=== PATIENT | male | born 1990 | race Caucasian/White ===

== ENCOUNTER 2022-05-29 10:33 | Emergency (ER) | payer MEDICAID, SELFPAY ==
[2022-05-29] VITALS (18 sets, daily range): BP systolic 116–137; BP diastolic 75–96; PULSE 58–87; RESP 18–20; TEMP 36.4; O2SAT 91–97; BMI 21.6
--- NOTE | 2022-05-29 10:57 | CRLHL7_ITS ---
For Patients: As a result of the Century Cures Act, medical imaging exams and procedure reports are released immediately into your electronic medical record. You may view this report before your referring provider. If you have questions, please contact your health care provider. CHEST 1 VIEW AP INDICATION: Cough. IMPRESSION: Normal heart size and vascular pattern. Lungs are clear of focal opacities. No pneumothorax or pleural abnormality. Dictated by Rinku Hong MD @ 05/29/2022 11:45:09 AM (Electronically Signed)
--- NOTE | 2022-05-29 10:59 | ED.GENADULT ---
HPI - General Adult General Time Seen by Provider: 10:59 Date Seen: 05/29/22 Chief complaint: Chest Pain Stated complaint: Heart hurts Time Seen by Provider: 05/29/22 10:35 Source: patient Mode of arrival: ambulatory Limitations: no limitations History of Present Illness HPI narrative: Patient is a 32 year white male who has been through alcohol treatment in the past, reports regular drinking, has been drinking fairly heavily recently. He has had congestion since he was diagnosed with COVID about 12 days ago. He apparently did a home test. He has had some congestion and cough. He denies any abdominal pain denies specifically chest pain but does state he is coughing when he coughs his chest is tight. He has no shortness of breath, his O2 sat is 97% on room air, has not had any marked fevers or chills. He has not any purulent sputum. He has no leg swelling or edema, no bleeding or clotting problems. He reports he is not allergic to medication, past medical history single for alcoholism he denies any home meds Related Data Home Medications Medication Instructions Recorded Confirmed No Known Home Medications 05/29/22 05/29/22 Allergies Allergy/AdvReac Type Severity Reaction Status Date / Time No Known Drug Allergies Allergy Verified 05/29/22 10:45 Review of Systems Status of ROS: Reports: 6 or more systems reviewed and unremarkable except as noted in History and below [facility] Social History Smoking Status: Current every day smoker What tobacco products do you use: cigarettes Smoking packs per day: 0.75 Smoking cigarettes per day: 15.0 Do you use any of these nicotine containing products: None Second hand tobacco smoke exposure: No How often do you have a drink containing alcohol: 4 or more times a week How many standard drinks containing alcohol do you have on a typical day: 7 to 9 How often do you have six or more drinks on one occasion: Daily or almost daily AUDIT-C Alcohol total score: 11 Non-prescribed substance use: denies use Exam Narrative: Exam Narrative: Objective: Patient's vital signs unremarkable he is alert or x3, has an eczematous rash several spots patchy spots on his face and upper body in arms He is alert orient x3 smells of alcohol, alert oriented and noncyanotic. Denies pain or injury. HEENT is unremarkable neck is supple chest is clear bilaterally no rales or wheezing heart rhythm without murmur Abdomen benign soft nontender no masses Extremities are no edema good peripheral perfusion, neurologic is nonfocal Const: Vital Signs, click to edit/add: Vital Signs - 24 hr 05/29/22 10:37 05/29/22 11:10 05/29/22 10:50 Temperature 97.5 F L Pulse Rate 73 Pulse Rate [Pulse Oximeter] 74 Respiratory Rate 20 Blood Pressure Blood Pressure [Ri ght Upper Arm] 137/96 H Pulse Oximetry 97 92 92 Oxygen Delivery Me thod Room Air 05/29/22 11:00 05/29/22 11:02 05/29/22 11:15 Temperature Pulse Rate 75 71 76 Pulse Rate [Pulse Oximeter] Respiratory Rate Blood Pressure 116/75 Blood Pressure [Ri ght Upper Arm] Pulse Oximetry 92 92 94 Oxygen Delivery Me thod 05/29/22 11:30 05/29/22 11:31 05/29/22 11:45 Temperature Pulse Rate 79 85 69 Pulse Rate [Pulse Oximeter] Respiratory Rate Blood Pressure 127/94 H Blood Pressure [Ri ght Upper Arm] Pulse Oximetry 93 91 95 Oxygen Delivery Me thod 05/29/22 12:06 05/29/22 12:07 05/29/22 12:15 Temperature Pulse Rate 58 L 58 L 64 Pulse Rate [Pulse Oximeter] Respiratory Rate Blood Pressure 128/79 Blood Pressure [Ri ght Upper Arm] Pulse Oximetry 95 93 93 Oxygen Delivery Me thod 05/29/22 12:30 05/29/22 12:32 05/29/22 12:45 Temperature Pulse Rate 63 62 67 Pulse Rate [Pulse Oximeter] Respiratory Rate Blood Pressure 124/79 Blood Pressure [Ri ght Upper Arm] Pulse Oximetry 94 95 94 Oxygen Delivery Me thod 05/29/22 13:00 05/29/22 13:02 05/29/22 13:15 Temperature Pulse Rate 70 80 87 Pulse Rate [Pulse Oximeter] Respiratory Rate 18 Blood Pressure 126/90 H Blood Pressure [Ri ght Upper Arm] Pulse Oximetry 94 95 96 Oxygen Delivery Me thod Course Vital Signs Vital signs: Initial Vital Signs Temperature 97.5 F L 05/29/22 10:37 Temperature Source Temporal Artery Scan 05/29/22 10:37 Pulse Rate 74 05/29/22 10:37 Respiratory Rate 20 05/29/22 10:37 Blood Pressure 137/96 H 05/29/22 10:37 Blood Pressure Mean 109 H 05/29/22 10:37 Blood Pressure Position Semi-Fowlers 05/29/22 10:37 Pulse Oximetry 97 05/29/22 10:37 Oxygen Delivery Method Room Air 05/29/22 10:37 Vital Signs Temperature 97.5 F L 05/29/22 10:37 Pulse Rate 74 05/29/22 10:37 Respiratory Rate 20 05/29/22 10:37 Blood Pressure 137/96 H 05/29/22 10:37 Pulse Oximetry 97 05/29/22 10:37 Oxygen Delivery Method Room Air 05/29/22 10:37 Temperature 97.5 F L 05/29/22 10:37 Pulse Rate 87 05/29/22 13:15 Respiratory Rate 18 05/29/22 13:02 Blood Pressure 126/90 H 05/29/22 13:02 Pulse Oximetry 96 05/29/22 13:15 Oxygen Delivery Method Room Air 05/29/22 10:37 Medical Decision Making [facility] Narrative Medical decision making narrative: [age] year white male alcoholic with alcohol intoxication, recent diagnosis of COVID. By a home test. I think at this point be reasonable to make sure does not have any pneumonia or other respiratory compound compromise, his O2 sat looks excellent however he is afebrile. Will rehydrate with a banana bag of fluid, will give him an aspirin 324 chewable check a point of care troponin an EKG which demonstrates normal sinus rhythm with sinus arrhythmia no acute ST T wave changes. Will check electrolytes and lab studies. The patient will get some IV fluid as mention and disposition pending findings above. He does have a ride home. Will check his alcohol level as well. Addendum: The patient's chest x-ray looks unremarkable to my read, his EKG shows normal sinus rhythm with sinus arrhythmia. The patient has an elevated alcohol level of 0.29. The patient also has a negative troponin, negative CRP, normal white count hemoglobin, normal ER profile, negative COVID influenza the RSV test, and the patient does have a positive D-dimer at 0.60. Given that the COVID is negative I think would be appropriate to check because of his cough for PE and will do a chest CT scan with IV contrast. Addendum: The patient's CT scan of the chest looks pretty unremarkable by my read, await Radiology overreading. If this is read as negative, I suspect a lot of his congestion is due to the COVID-19 that he tested positive for 12 days ago. He is not test positive further. His alcohol level is high does have a ride home. He would be advised to follow-up with his primary care doctor to discuss treatment options for his alcoholism, and return to ED as needed for problems or concerns. The patient did complain of a slightly upset stomach and was given a GI cocktail prior to discharge. He had no findings of peritonitis on his abdomen or tenderness of significance. Addendum: The patient is deciding now that he would like to go to detox. Transfer sheets will be completed on the patient for transfer. He has been medically cleared for detox. Lab Data Labs: Lab Results 05/29/22 05/29/22 Range/Units 11:10 13:30 WBC 6.65 (4.50-11.00) K/uL RBC 4.63 (4.30-5.90) m/uL Hgb 15.3 (13.5-17.5) gm/dL Hct 44.9 (37.0-53.0) % MCV 97 (80-100) fL MCH 33 (26-34) pg MCHC 34 (32-36) gm/dL RDW Coeff of [place] 13.3 (11.5-15.5) % Plt Count 361 (140-440) K/uL Neut % (Auto) 62.2 (42.0-72.0) % Lymph % (Auto) 26.8 (20-44) % [place] % (Auto) 8.6 (0.0-11.0) % Eos % (Auto) 1.2 (0.0-7.0) % Baso % (Auto) 1.2 (0.0-3.0) % Neut # (Auto) 4.14 (1.7-7.0) K/uL Lymph # (Auto) 1.78 (0.90-2.90) K/uL [place] # (Auto) 0.60 (0.00-0.90) K/UL Eos # (Auto) 0.08 (0.00-0.50) K/uL Baso # (Auto) 0.08 (0.00-0.30) K/uL D-Dimer Quant (PE/DVT) 0.60 H (0.00-0.50) ug/ml Sodium 140 (135-149) mmol/L Potassium 4.1 (3.6-5.1) mmol/L Chloride 101 (96-114) mmol/L Carbon Dioxide 25 (20-32) mmol/L BUN 8 (5-24) mg/dL Creatinine 0.5 (0.5-1.5) mg/dL Estimated Creat Clear 210.92 Estimated GFR 139 ml/min Glucose 109 (60-115) mg/dL Calcium 8.9 (8.4-10.6) mg/dL C-Reactive Protein < 0.5 L (0.5-1.0) mg/dL NT-Pro-B Natriuret Pep < 20 pg/mL Urine Opiates Screen Negative (Negative) Ur Oxycodone Screen Negative (Negative) Urine Methadone Screen Negative (Negative) Ur Propoxyphene Screen Negative (Negative) Ur Barbiturates Screen Negative (Negative) U Tricyclic Antidepress Negative (Negative) Ur Phencyclidine Scrn Negative (Negative) Ur Amphetamines Screen Negative (Negative) U Methamphetamines Scrn Negative (Negative) U Benzodiazepines Scrn Negative (Negative) Urine Cocaine Screen Negative (Negative) U Marijuana (THC) Screen Negative (Negative) Ur Drug Screen Comment See Note Ethyl Alcohol 0.29 H (0.01-0.03) % SARS-CoV-2 (PCR) Negative SARS-CoV-2 (Negative) Influenza Type A (PCR) Negative PCR FLU A (Negative) Influenza Type B (PCR) Negative PCR FLU B (Negative) RSV (PCR) Negative PCR RSV (Negative) POC Troponin I 0.00 L (0.01-0.04) ng/ml Discharge Plan Discharge Clinical Impression: COVID-19, Alcoholism, Cough Patient Disposition: Home w/ Parent or Adult Condition: Stable Additional Instructions: Light activity, stop drinking, call back to social service for consultation if have any interest in pursuing sobriety, Tylenol Advil as needed. Return to ED as needed problems or concerns, otherwise follow up with regular doctor in 2-3 days. Activity Level: Light activity Discharge Diet: Regular Prescriptions: No Action No Known Home Medications Stand Alone Forms: [facility] Info Instructions
[2022-05-29] MEDS: ASPIRIN 81 MG TAB.CHEW 324 MG PO (11:16)
[2022-05-29 11:25] LABS: Basophils Absolute Auto 0.08 K/uL (0.00-0.30); Basophils Percent Auto 1.2 % (0.0-3.0); Eosinophils Absolute Auto 0.08 K/uL (0.00-0.50); Eosinophils Percent Auto 1.2 % (0.0-7.0); Hematocrit 44.9 % (37.0-53.0); Hemoglobin* 15.3 gm/dL (13.5-17.5); Lymphocytes Absolute Auto 1.78 K/uL (0.90-2.90); Lymphocytes Percent Auto 26.8 % (20-44); Mean Corpuscular HGB Conc 34 gm/dL (32-36); Mean Corpuscular Hemoglobin 33 pg (26-34); Mean Corpuscular Volume 97 fL (80-100); Monocytes Percent Auto 8.6 % (0.0-11.0); Neutrophils Absolute Auto 4.14 K/uL (1.7-7.0); Neutrophils Percent Auto 62.2 % (42.0-72.0); Platelet Count* 361 K/uL (140-440); RDW Coefficient of Variation % 13.3 % (11.5-15.5); Red Blood Count 4.63 m/uL (4.30-5.90); White Blood Count* 6.65 K/uL (4.50-11.00)
[2022-05-29 11:26] LABS: Slide Review Reflex No
--- NOTE | 2022-05-29 11:33 | ED.NURSE ---
Pt states he has a hx of ETOH withdrawal seizure about 12 hours from his last drink. Last drink at 0800 this morning. CIWA of 14. Dr Villasenor updated.
[2022-05-29 11:39] LABS: Chloride* 101 mmol/L (96-114); Potassium* 4.1 mmol/L (3.6-5.1); Sodium* 140 mmol/L (135-149)
[2022-05-29 11:41] LABS: Creatinine* 0.5 mg/dL (0.5-1.5); Est. Creatinine Clearance* 210.92; Estimated Glomerular Filt Rate 139 ml/min
[2022-05-29 11:42] LABS: Blood Urea Nitrogen* 8 mg/dL (5-24); Calcium* 8.9 mg/dL (8.4-10.6); Carbon Dioxide* 25 mmol/L (20-32); Glucose* 109 mg/dL (60-115)
[2022-05-29 11:43] LABS: Ethanol* 0.29 % (0.01-0.03)
--- NOTE | 2022-05-29 11:45 | ED.NURSE ---
No new orders at this timer based on CIWA.
[2022-05-29 11:59] LABS: C Reactive Protein* < 0.5 mg/dL (0.5-1.0); NT Pro B Type NatriureticPept* < 20 pg/mL
[2022-05-29 12:01] LABS: PCR FLU A Negative PCR FLU A (Negative); PCR FLU B Negative PCR FLU B (Negative); PCR RSV Negative PCR RSV (Negative)
[2022-05-29 12:02] LABS: SARS PCR* Negative SARS-CoV-2 (Negative)
--- NOTE | 2022-05-29 12:03 | CRLHL7_ITS ---
For Patients: As a result of the Cures Act, medical imaging exams and procedure reports are released immediately into your electronic medical record. You may view this report before your referring provider. If you have questions, please contact your health care provider. INDICATION: Positive D-dimer. COVID infection TECHNIQUE : CT scan of the chest. CTA PE protocol. IV contrast. 95 cc Isovue IV FINDINGS: Pulmonary arteries:No pulmonary artery filling defects. Heart/mediastinum:No adenopathy. Normal heart size. No pericardial fluid. Aorta: Unremarkable Lungs and pleura:No consolidation or effusion. Abdomen/skeletal:Low-dense fatty infiltration of the liver. No significant skeletal abnormality. IMPRESSION: 1. No signs for acute pulmonary embolus. 2. Low-dense fatty infiltration of the liver. Please note that all CT scans at this facility use dose modulation, iterative reconstruction, and/or weight-based dosing when appropriate to reduce radiation dose to as low as reasonably achievable. Dictated by Rinku Hong MD @ 05/29/2022 12:51:32 PM (Electronically Signed)
[2022-05-29] MEDS: GI COCKTAIL (VISC LIDO/ANTACID) 30 ML PO (13:12)
--- NOTE | 2022-05-29 13:30 | ED.NURSE ---
After removing IV and giving pt d/c papers, pt stated he would like to go to detox after all. Would like assistance in getting there. Information given to Marva leung.
[2022-05-29 14:00] LABS: Amphetamine Screen Urine Negative (Negative); Barbiturate Screen Urine Negative (Negative); Benzodiazepines Screen Urine Negative (Negative); Cannabinoid Screen Urine Negative (Negative); Cocaine Screen Urine Negative (Negative); Methadone Screen Urine Negative (Negative); Methamphetamines Screen Urine Negative (Negative); Opiate Screen Urine Negative (Negative); Oxycodone Screen Urine Negative (Negative); Phencyclidine Screen Urine Negative (Negative); Tricyclic Antidepressant Urine Negative (Negative)
--- NOTE | 2022-05-29 15:11 | ED.NURSE ---
Acceptance to [facility]. Pt is aware that he will need to stay 24-72 hours and cannot leave until he is medically cleared. Pt states he has a ride home from detox. EMS called for transport.
[2022-05-29] MEDS: ONDANSETRON ODT 4 MG TAB PO (15:43)
--- NOTE | 2022-05-29 15:52 | ED.NURSE ---
PT transferred to [facility].
== END 2022-05-29 15:53 | disposition home or self-care (01) ==
LOC: ED 11:49
PROVIDERS: Emergency Provider Family Medicine
DX: U07.1 COVID-19 (principal); F10.20 Alcohol dependence, uncomplicated
CPT/HCPCS: 36415; 71045; 71260; 80048; 80306; 82077; 83880; 84484; 85025; 85379; 86140; 87631; 93005; 94761; 99284; 99285; A9270; J3411; J7030; Q9967

== ENCOUNTER 2022-05-29 15:35 | Outpatient (CLI) | payer MEDICAID, SELFPAY | END 2022-05-29 15:36 | disposition home or self-care (01) | LOC: AMB 06-02 09:16 | PROVIDERS: Visit Provider Family Medicine | DX: F10.239 Alcohol dependence with withdrawal, unspecified (principal) | CPT/HCPCS: A0425; A0428 ==

== ENCOUNTER 2022-06-19 07:05 | Inpatient (IN) | payer MEDICAID, SELFPAY ==
[2022-06-19] VITALS (20 sets, daily range): BP systolic 121–150; BP diastolic 76–92; PULSE 53–106; RESP 16–20; TEMP 36.6–36.8; O2SAT 94–98; BMI 20.3
--- NOTE | 2022-06-19 07:39 | CRLHL7_ITS ---
For Patients: As a result of the Century Cures Act, medical imaging exams and procedure reports are released immediately into your electronic medical record. You may view this report before your referring provider. If you have questions, please contact your health care provider. INDICATION: Vomiting and abdominal pain. TECHNIQUE: CT abdomen and pelvis acquired with 74 cc Isovue 370 IV contrast. COMPARISON: 05/29/2022. FINDINGS: Lower chest: Unremarkable. Liver: Fatty infiltration. Otherwise unremarkable. Gallbladder and bile ducts: Unremarkable. No stones or inflammation. No biliary dilatation. Pancreas: Unremarkable. No mass or inflammation. Spleen: Unremarkable. Normal in size. No masses. Adrenal glands: Unremarkable. No nodules. Kidneys: Unremarkable. No suspicious masses, stones, or hydronephrosis. GI tract: Unremarkable. Normal in caliber. No sign of mass or inflammation. Normal appendix. Vasculature: Abdominal aorta is normal in caliber. Mesenteric arteries are patent. Lymph nodes: No lymphadenopathy. Peritoneum/Abdominal Wall: Unremarkable. No sign of mass or infiltration. No free air or significant free fluid. Pelvis: Unremarkable. Bones: Unremarkable for age. IMPRESSION: Unremarkable CT of the abdomen and pelvis. No findings to explain vomiting or abdomen pain. Specifically the GI tract is normal.. Please note that all CT scans at this facility use dose modulation, iterative reconstruction, and/or weight-based dosing when appropriate to reduce radiation dose to as low as reasonably achievable. Dictated by Melquiades Zambrano MD @ 06/19/2022 8:27:48 AM (Electronically Signed)
--- NOTE | 2022-06-19 07:42 | ED_ITS ---
HPI - Nausea/Vomiting/Diarrhea General Chief complaint: Nausea/Vomiting <Bebeto Canales MD - Last Filed: 06/19/22 07:51> Stated complaint: Vomiting blood last 24hr <Bebeto Canales MD - Last Filed: 06/19/22 07:51> Time Seen by Provider: 06/19/22 07:34 <Bebeto Canales MD - Last Filed: 06/19/22 07:51> History of Present Illness HPI Narrative: Patient is a 32-year-old gentleman who has a history of alcohol abuse who is been vomiting for approximately 20 hours. The patient's vomiting has over the last several hours started produce coffee-ground emesis. He has diffuse abdominal pain which localizes to the epigastrium. He has had no chest pain danisha rtness a breath orthopnea or PND. He has had similar problems in the past and is supposed to be taking omeprazole which he has discontinued. Patient is not certain how much he drink 2 days ago but states that he does drink on a nearly every day basis. He has had no blood in his stool no diarrhea no seizure activity although he does have a history of seizures x2 number of years ago. Patient is not hit his head and has no other complaints. <Bebeto Canales MD - Last Filed: 06/19/22 07:51> Related Data Home medications: Home Medications Medication Instructions Recorded Confirmed No Known Home Medications 05/29/22 05/29/22 <Bebeto Canales MD - Last Filed: 06/19/22 07:51> Allergies/Adverse reactions: Allergies Allergy/AdvReac Type Severity Reaction Status Date / Time No Known Drug Allergies Allergy Verified 06/19/22 08:07 <Bebeto Canales MD - Last Filed: 06/19/22 07:51> Review of Systems Status of ROS: Reports: 10 or more systems reviewed and unremarkable except as noted in History and below <Bebeto Canales MD - Last Filed: 06/19/22 07:51> [facility] Medical History: Medical History Alcohol abuse ?F10.10 - Alcohol abuse, uncomplicated (ICD-10) Seizures ?R56.9 - Unspecified convulsions (ICD-10) <Bebeto Canales MD - Last Filed: 06/19/22 07:51> Surgical History: Surgical History History of ankle surgery ?Z98.890 - Other specified postprocedural states (ICD-10) <Bebeto Canales MD - Last Filed: 06/19/22 07:51> Social History: Social History Smoking Status: Current every day smoker What tobacco products do you use: cigarettes Smoking packs per day: 0.75 Smoking cigarettes per day: 15.0 Do you use any of these nicotine containing products: None Second hand tobacco smoke exposure: No How often do you have a drink containing alcohol: 4 or more times a week How many standard drinks containing alcohol do you have on a typical day: 7 to 9 How often do you have six or more drinks on one occasion: Daily or almost daily AUDIT-C Alcohol total score: 11 Non-prescribed substance use: denies use service: No <Bebeto Canales MD - Last Filed: 06/19/22 07:51> Exam Narrative: Exam Narrative: EXAM GENERAL: Patient appears mildly uncomfortable and pale. EYES: No scleral icterus. LYMPH: No supraclavicular or cervical lymphadenopathy. SKIN: Visible skin seen during exam normal or with benign process only. EXT: No dependent lower extremity pedal edema. HEART: Regular rate and rhythm with no murmurs, rubs, or gallops. LUNGS: Clear to auscultation bilaterally with no crackles or wheezes. ABD: Somewhat rigid with hypoactive bowel sounds no rebound masses or guarding. PSYCH: Good eye contact, speech is not pressured. <Bebeto Canales MD - Last Filed: 06/19/22 07:51> Const: Vital Signs, click to edit/add: Vital Signs - 24 hr 06/19/22 07:21 Temperature 97.9 F Pulse Rate [Pulse Oximeter] 69 Respiratory Rate 20 Blood Pressure [Ri ght Upper Arm] 144/88 H Pulse Oximetry 96 Oxygen Delivery Me thod Room Air <Bebeto Canales MD - Last Filed: 06/19/22 07:51> Vital Signs, click to edit/add: Vital Signs - 24 hr 06/19/22 07:21 Temperature 97.9 F Pulse Rate [Pulse Oximeter] 69 Respiratory Rate 20 Blood Pressure [Ri ght Upper Arm] 144/88 H Pulse Oximetry 96 Oxygen Delivery Me thod Room Air <Jarad Osborne MD - Last Filed: 06/19/22 09:23> Course Course Hospital Course: Patient seen examined. CBC CMP amylase lipase PT PTT ETOH troponin EKG CT of the abdomen pelvis ordered. Gastroccult positive emesis noted. Patient started on IV Protonix and as well as 1 L of normal saline 4 mg of IV Zofran. <Bebeto Canales MD - Last Filed: 06/19/22 07:51> Reevaluation(s) Reevaluation #1: evaluation the patient is done by myself, he is in room 3. He has some [id number] abdominal pain, epigastric region, quiet bowel sounds, tenderness is noted. But I do not is detect any peritoneal signs. He does have aeas-bi-whlejkcm rigidity notable. He does have a normal CT scan in this setting. His hemoglobin is stable at 15, and his previous hemoglobin from month ago I can see in his epic chart was 14.2. Hemoccult is done by myself which is positive. There is the maroon-colored stools. I did not see his vomitus, but my report from the outgoing ER physician was it was blood within the vomitus. I suspect his upper GI bleeding is from his alcoholic use, Lois-Polanco tears verses gastritis verses duodenal bleeding in the setting of a non perforated ulcer. This is primarily in the differential. he tells me about 5-6 years ago he did have upper endoscopy for the reason that there is some thickness to his vomit? He has never been told he has varices. He was last in treatment in November for 41 days in [place]. Never before been in treatment, and this was not court mandated. He is interested in treatment again. He has only been to detox twice. 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 Lives in [place], is on no medications, has no direct primary care physician. I spoke to Dr. Byron cano from [facility] he agreed to take the patient, with the above diagnosis I will start a banana bag, I will give him some IV of Valium. His CIWA score is still very low currently, and his blood alcohol level is 0. He tells me last drink approximately 8-12 hours ago. There is a remote history 5-6 years ago of alcoholic withdrawal seizures. <Jarad Osborne MD - Last Filed: 06/19/22 09:23> Time: 09:18 <Jarad Osborne MD - Last Filed: 06/19/22 09:23> Vital Signs Vital signs: Initial Vital Signs Temperature 97.9 F 06/19/22 07:21 Temperature Source Temporal Artery Scan 06/19/22 07:21 Pulse Rate 69 06/19/22 07:21 Pulse Rhythm Regular 06/19/22 07:21 Respiratory Rate 20 06/19/22 07:21 Blood Pressure 144/88 H 06/19/22 07:21 Blood Pressure Mean 106 H 06/19/22 07:21 Blood Pressure Position Supine 06/19/22 07:21 Pulse Oximetry 96 06/19/22 07:21 Oxygen Delivery Method Room Air 06/19/22 07:21 Vital Signs Temperature 97.9 F 06/19/22 07:21 Pulse Rate 69 06/19/22 07:21 Respiratory Rate 20 06/19/22 07:21 Blood Pressure 144/88 H 06/19/22 07:21 Pulse Oximetry 96 06/19/22 07:21 Oxygen Delivery Method Room Air 06/19/22 07:21 Temperature 97.9 F 06/19/22 07:21 Pulse Rate 69 06/19/22 07:21 Respiratory Rate 20 06/19/22 07:21 Blood Pressure 144/88 H 06/19/22 07:21 Pulse Oximetry 96 06/19/22 07:21 Oxygen Delivery Method Room Air 06/19/22 07:21 <Bebeto Canales MD - Last Filed: 06/19/22 07:51> Initial Vital Signs Temperature 97.9 F 06/19/22 07:21 Temperature Source Temporal Artery Scan 06/19/22 07:21 Pulse Rate 69 06/19/22 07:21 Pulse Rhythm Regular 06/19/22 07:21 Respiratory Rate 20 06/19/22 07:21 Blood Pressure 144/88 H 06/19/22 07:21 Blood Pressure Mean 106 H 06/19/22 07:21 Blood Pressure Position Supine 06/19/22 07:21 Pulse Oximetry 96 06/19/22 07:21 Oxygen Delivery Method Room Air 06/19/22 07:21 Vital Signs Temperature 97.9 F 06/19/22 07:21 Pulse Rate 69 06/19/22 07:21 Respiratory Rate 20 06/19/22 07:21 Blood Pressure 144/88 H 06/19/22 07:21 Pulse Oximetry 96 06/19/22 07:21 Oxygen Delivery Method Room Air 06/19/22 07:21 Temperature 97.9 F 06/19/22 07:21 Pulse Rate 69 06/19/22 07:21 Respiratory Rate 20 06/19/22 07:21 Blood Pressure 144/88 H 06/19/22 07:21 Pulse Oximetry 96 06/19/22 07:21 Oxygen Delivery Method Room Air 06/19/22 07:21 <Jarad Osborne MD - Last Filed: 06/19/22 09:23> MDM - Nausea/Vomiting/Diarrhea MDM Narrative Medical decision making narrative: During this evaluation of this patient I considered multiple differential diagnosis is which included the life-threatening such as appendicitis, aortic aneurysm, mesenteric ischemia, bowel perforation, volvulus, and bowel obstruction. Other differential diagnosis is include but are not limited to cholecystitis, pancreatitis, hepatitis, gastritis, GERD, diverticulitis, peptic ulcer disease, pyelonephritis/UTI, renal colic/stone, testicular torsion as well as other acute scrotal processes, inflammatory bowel disease, as well as other etiologies <Jarad Osborne MD - Last Filed: 06/19/22 09:23> Medical Records Attestation: I reviewed the patient's medical records. <Jarad Osborne MD - Last Filed: 06/19/22 09:23> Lab Data Attestation: I reviewed the patient's lab results. <Jarad Osborne MD - Last Filed: 06/19/22 09:23> Labs: Lab Results 06/19/22 06/19/22 Range/Units 07:50 08:08 WBC 9.73 (4.50-11.00) K/uL RBC 4.78 (4.30-5.90) m/uL Hgb 15.8 (13.5-17.5) gm/dL Hct 45.7 (37.0-53.0) % MCV 96 (80-100) fL MCH 33 (26-34) pg MCHC 35 (32-36) gm/dL RDW Coeff of Uche 13.0 (11.5-15.5) % Plt Count 243 (140-440) K/uL Neut % (Auto) 91.5 H (42.0-72.0) % Lymph % (Auto) 3.5 L (20-44) % [place] % (Auto) 4.6 (0.0-11.0) % Eos % (Auto) 0.0 (0.0-7.0) % Baso % (Auto) 0.3 (0.0-3.0) % Neut # (Auto) 8.90 H (1.7-7.0) K/uL Lymph # (Auto) 0.30 L (0.90-2.90) K/uL [place] # (Auto) 0.40 (0.00-0.90) K/UL Eos # (Auto) 0.00 (0.00-0.50) K/uL Baso # (Auto) 0.03 (0.00-0.30) K/uL INR 1.03 (0.91-1.10) APTT 26 (23-33) Seconds Sodium 136 (135-149) mmol/L Potassium 4.2 (3.6-5.1) mmol/L Chloride 85 L (96-114) mmol/L Carbon Dioxide 36 H (20-32) mmol/L BUN 14 (5-24) mg/dL Creatinine 0.8 (0.5-1.5) mg/dL Estimated Creat Clear 127.57 Estimated GFR 121 ml/min Glucose 173 H (60-115) mg/dL Calcium 9.6 (8.4-10.6) mg/dL Total Bilirubin 4.8 H (0.1-1.5) mg/dL AST 118 H (12-35) U/L ALT 101 H (4-50) U/L Alkaline Phosphatase 76 (40-150) U/L Troponin I < 0.01 L (0.01-0.04) ng/mL Total Protein 8.4 H (6.0-8.3) g/dL Albumin 5.3 H (3.3-5.0) g/dL Amylase 101 H (18-89) U/L Lipase 22 L (23-300) U/L Ethyl Alcohol < 0.01 L (0.01-0.03) % <Bebeto Canales MD - Last Filed: 06/19/22 07:51> Lab Results 06/19/22 06/19/22 Range/Units 07:50 08:08 WBC 9.73 (4.50-11.00) K/uL RBC 4.78 (4.30-5.90) m/uL Hgb 15.8 (13.5-17.5) gm/dL Hct 45.7 (37.0-53.0) % MCV 96 (80-100) fL MCH 33 (26-34) pg MCHC 35 (32-36) gm/dL RDW Coeff of Uche 13.0 (11.5-15.5) % Plt Count 243 (140-440) K/uL Neut % (Auto) 91.5 H (42.0-72.0) % Lymph % (Auto) 3.5 L (20-44) % [place] % (Auto) 4.6 (0.0-11.0) % Eos % (Auto) 0.0 (0.0-7.0) % Baso % (Auto) 0.3 (0.0-3.0) % Neut # (Auto) 8.90 H (1.7-7.0) K/uL Lymph # (Auto) 0.30 L (0.90-2.90) K/uL [place] # (Auto) 0.40 (0.00-0.90) K/UL Eos # (Auto) 0.00 (0.00-0.50) K/uL Baso # (Auto) 0.03 (0.00-0.30) K/uL INR 1.03 (0.91-1.10) APTT 26 (23-33) Seconds Sodium 136 (135-149) mmol/L Potassium 4.2 (3.6-5.1) mmol/L Chloride 85 L (96-114) mmol/L Carbon Dioxide 36 H (20-32) mmol/L BUN 14 (5-24) mg/dL Creatinine 0.8 (0.5-1.5) mg/dL Estimated Creat Clear 127.57 Estimated GFR 121 ml/min Glucose 173 H (60-115) mg/dL Calcium 9.6 (8.4-10.6) mg/dL Total Bilirubin 4.8 H (0.1-1.5) mg/dL AST 118 H (12-35) U/L ALT 101 H (4-50) U/L Alkaline Phosphatase 76 (40-150) U/L Troponin I < 0.01 L (0.01-0.04) ng/mL Total Protein 8.4 H (6.0-8.3) g/dL Albumin 5.3 H (3.3-5.0) g/dL Amylase 101 H (18-89) U/L Lipase 22 L (23-300) U/L Ethyl Alcohol < 0.01 L (0.01-0.03) % <Jarad Osborne MD - Last Filed: 06/19/22 09:23> Imaging Data CT scan - abdomen: Attestation: I have reviewed the pertinent imaging results. <Jarad Osborne MD - Last Filed: 06/19/22 09:23> My impression: no acute perforation, <Jarad Osborne MD - Last Filed: 06/19/22 09:23> Radiologist's impression: Patient: FROILAN HERNANDEZ Facility:?[facility] Patient ID:?[id number] Site Patient ID:?[id number]. Site :?[id number] Study:?CT Abdomen/Pelvis 74CC ISOVUE 370-06/19/2022 8:09:12 AM Ordering Physician:?Ally Tate Final Report: INDICATION: Vomiting and abdominal pain. TECHNIQUE: CT abdomen and pelvis acquired with 74 cc Isovue 370 IV contrast. COMPARISON: 05/29/2022. FINDINGS: Lower chest: Unremarkable. Liver: Fatty infiltration. Otherwise unremarkable. Gallbladder and bile ducts: Unremarkable. No stones or inflammation. No biliary dilatation. Pancreas: Unremarkable. No mass or inflammation. Spleen: Unremarkable. Normal in size. No masses. Adrenal glands: Unremarkable. No nodules. Kidneys: Unremarkable. No suspicious masses, stones, or hydronephrosis. GI tract: Unremarkable. Normal in caliber. No sign of mass or inflammation. Normal appendix. Vasculature: Abdominal aorta is normal in caliber. Mesenteric arteries are patent. Lymph nodes: No lymphadenopathy. Peritoneum/Abdominal Wall: Unremarkable. No sign of mass or infiltration. No free air or significant free fluid. Pelvis: Unremarkable. Bones: Unremarkable for age. IMPRESSION: Unremarkable CT of the abdomen and pelvis. No findings to explain vomiting or abdomen pain. Specifically the GI tract is normal.. Please note that all CT scans at this facility use dose modulation, iterative reconstruction, and/or weight-based dosing when appropriate to reduce radiation dose to as low as reasonably achievable. Dictated by Melquiades Zambrano MD @ 06/19/2022 8:27:48 AM (Electronic Signature) <Jarad Osborne MD - Last Filed: 06/19/22 09:23> Discharge Plan Discharge Clinical Impression: Alcoholism, Acute upper gastrointestinal bleeding, Acute alcoholic hepatitis <Bebeto Canales MD - Last Filed: 06/19/22 07:51> Patient Disposition: Admitted As Inpatient <Bebeto Canales MD - Last Filed: 06/19/22 07:51> Condition: Improved <Bebeto Canales MD - Last Filed: 06/19/22 07:51>
[2022-06-19] MEDS: 0.9 % SODIUM CHLORIDE 1000 ml 1,000 ML IV (08:04)
[2022-06-19] MEDS: ONDANSETRON 2 MG/ML inj 4 MG IVP (08:04)
[2022-06-19] MEDS: PANTOPRAZOLE SODIUM 40 MG INJ IVP (08:06)
[2022-06-19 08:07] LABS: Basophils Absolute Auto 0.03 K/uL (0.00-0.30); Basophils Percent Auto 0.3 % (0.0-3.0); Hematocrit 45.7 % (37.0-53.0); Hemoglobin* 15.8 gm/dL (13.5-17.5); Immature Granulocytes Abs Auto 0.01 K/uL (0.00-0.30); Immature Granulocytes Pct Auto 0.1 %; Lymphocytes Percent Auto 3.5 % (20-44); Mean Corpuscular HGB Conc 35 gm/dL (32-36); Mean Corpuscular Hemoglobin 33 pg (26-34); Mean Corpuscular Volume 96 fL (80-100); Monocytes Percent Auto 4.6 % (0.0-11.0); Neutrophils Percent Auto 91.5 % (42.0-72.0); Platelet Count* 243 K/uL (140-440); Red Blood Count 4.78 m/uL (4.30-5.90); White Blood Count* 9.73 K/uL (4.50-11.00)
[2022-06-19 08:14] LABS: Slide Review Reflex No
[2022-06-19 08:32] LABS: Chloride* 85 mmol/L (96-114)
[2022-06-19 08:33] LABS: Albumin* 5.3 g/dL (3.3-5.0); Potassium* 4.2 mmol/L (3.6-5.1); Sodium* 136 mmol/L (135-149)
[2022-06-19 08:35] LABS: Amylase* 101 U/L (18-89); Creatinine* 0.8 mg/dL (0.5-1.5); Est. Creatinine Clearance* 127.57; Estimated Glomerular Filt Rate 121 ml/min
[2022-06-19 08:36] LABS: Alanine Aminotransferase* 101 U/L (4-50); Alkaline Phosphatase* 76 U/L (40-150); Aspartate Amino Transferase* 118 U/L (12-35); Bilirubin Total* 4.8 mg/dL (0.1-1.5); Blood Urea Nitrogen* 14 mg/dL (5-24); Calcium* 9.6 mg/dL (8.4-10.6); Carbon Dioxide* 36 mmol/L (20-32); Glucose* 173 mg/dL (60-115); Lipase* 22 U/L (23-300); Total Protein* 8.4 g/dL (6.0-8.3)
[2022-06-19 08:49] LABS: INR 1.03 (0.91-1.10); Partial Thromboplastin Time* 26 Seconds (23-33); Prothrombin Time 14.1 Seconds
[2022-06-19 08:53] LABS: Ethanol* < 0.01 % (0.01-0.03); Troponin I* < 0.01 ng/mL (0.01-0.04)
[2022-06-19] MEDS: diazePAM 5 MG/ML inj IV (09:30)
--- NOTE | 2022-06-19 09:59 | ED.NURSE ---
report was given to maicol santoyo; will go to 277.
[2022-06-19] MEDS: MAG HYDROX/ALUMINUM HYD/SIMETH 30 ML ORAL.SUSP 15 ML PO ×2 (12:25→20:54)
[2022-06-19] MEDS: THIAMINE 100 MG TABLET PO (13:09)
--- NOTE | 2022-06-19 16:07 | P.IMHP_ITS ---
Hospitalist- H&P: HPI History of Present Illness Time Seen by Provider: 11:30 Date Seen: 06/19/22 Chief complaint: Vomiting blood last 24hr Narrative: Ronald Gracia is a 32 year old male with history of alcohol abuse, alcoholic hepatitis, and alcohol withdrawal seizure who started feeling nauseous yesterday afternoon around 3:00 p.m.. He then had emesis which was bilious at 1st and then started to burn his throat and by mid evening, around 8:00 p.m., he started having coffee-ground emesis and diffuse abdominal pain. He says he has never had anything like this before. He says he has been drinking alcohol since the age of 15 and quit for about a year and half in his early 20s. During the pandemic lockdown, he started drinking even more heavily, about a pint of vodka every day. His girlfriend of 10 years left him around that time and he moved in with his father. His father does not drink alcohol. When even started throwing up blood, he and his father poured out all the alcohol in the house and it is his intention to quit. About for years ago he had 2 seizures in 1 day that were thought to be alcohol withdrawal related. He has not had any seizures since then. 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 He is on his feet most of the day for this. He does not drink before during work because he knows it would affect his performance and he really wants to keep his job. He does sometimes get tremulous, irritable and headachy if he goes too long in between drinks. He felt this way in the emergency department for which he was given Valium, but is much better now. His main complaint now is that his throat is burning. Review of Systems Status of ROS: Reports: 10 or more systems reviewed and unremarkable except as noted in History and below [facility] Medical History (Updated 06/19/22 @ 17:27 by Mariposa Copeland MD) Alcohol withdrawal seizure (~2018) ?F10.939 - Alcohol use, unspecified with withdrawal, unspecified (ICD-10) ?R56.9 - Unspecified convulsions (ICD-10) COVID-19 ?U07.1 - COVID-19 (ICD-10) Alcohol abuse ?F10.10 - Alcohol abuse, uncomplicated (ICD-10) Seizures ?R56.9 - Unspecified convulsions (ICD-10) Surgical History History of ankle surgery ?Z98.890 - Other specified postprocedural states (ICD-10) Social History (Updated 06/19/22 @ 16:42 by Mariposa Copeland MD) Narrative: Lives with father. Not ; no kids. 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 EtOH - 1 pint vodka daily. Smokes 10-14 cigs/day. Denies recreational drug use. Smoking Status: Current every day smoker What tobacco products do you use: cigarettes Smoking packs per day: 0.75 Smoking cigarettes per day: 15.0 Do you use any of these nicotine containing products: None Second hand tobacco smoke exposure: No How often do you have a drink containing alcohol: 4 or more times a week How many standard drinks containing alcohol do you have on a typical day: 7 to 9 How often do you have six or more drinks on one occasion: Daily or almost daily AUDIT-C Alcohol total score: 11 Non-prescribed substance use: denies use service: No Meds Home Medications and Allergies Home Medications Medication Instructions Recorded Confirmed Type No Known Home Medications 05/29/22 05/29/22 History Allergies Allergy/AdvReac Type Severity Reaction Status Date / Time No Known Drug Allergies Allergy Verified 06/19/22 08:07 Exam Narrative: Exam Narrative: General: No acute distress. Awake alert oriented x3. No tremor. Scleral icterus is present. HEENT: Normocephalic atraumatic, pupils equally round and reactive to light and accommodation. Oropharynx clear. Mucous membranes are moist. No cervical lymphadenopathy, thyromegaly or carotid bruits. No JVD. Cardiovascular: Regular rate and rhythm. No murmurs, gallops, or rubs. Chest: No increased work of breathing. Clear to auscultation bilaterally. No crackles or wheezes. Abdomen: Bowel sounds present. Soft, nondistended, nontender. No hepatospleno megaly or masses. Extremities: No edema, no cyanosis or clubbing. Skin: No jaundice, no pallor, no rashes. Const: Vital Signs, click to edit/add: Vital Signs - 24 hr 06/19/22 07:21 06/19/22 07:53 06/19/22 08:04 Temperature 97.9 F Pulse Rate 60 55 L Pulse Rate [Pulse Oximeter] 69 Pulse Rate [Right Radial] Respiratory Rate 20 Blood Pressure Blood Pressure [Ri ght Arm] Blood Pressure [Ri ght Upper Arm] 144/88 H Pulse Oximetry 96 94 95 Oxygen Delivery Me od Room Air 06/19/22 08:05 06/19/22 08:15 06/19/22 08:30 Temperature Pulse Rate 53 L 55 L 57 L Pulse Rate [Pulse Oximeter] Pulse Rate [Right Radial] Respiratory Rate Blood Pressure 135/83 Blood Pressure [Ri ght Arm] Blood Pressure [Ri ght Upper Arm] Pulse Oximetry 94 95 [facility] 08:31 06/19/22 08:45 06/19/22 09:00 Temperature Pulse Rate 56 L 65 62 Pulse Rate [Pulse Oximeter] Pulse Rate [Right Radial] Respiratory Rate Blood Pressure 132/76 Blood Pressure [Ri ght Arm] Blood Pressure [Ri ght Upper Arm] Pulse Oximetry 95 96 98 [facility] 06/[facility] 09:02 06/19/22 09:15 06/19/22 09:30 Temperature Pulse Rate 62 57 L 55 L Pulse Rate [Pulse Oximeter] Pulse Rate [Right Radial] Respiratory Rate Blood Pressure 136/82 Blood Pressure [Ri ght Arm] Blood Pressure [Ri ght Upper Arm] Pulse Oximetry 98 96 96 [facility] 06/[facility]/22 09:31 06/19/22 09:45 06/19/22 10:25 Temperature 98.2 F Pulse Rate 60 69 Pulse Rate [Pulse Oximeter] Pulse Rate [Right Radial] 77 Respiratory Rate 18 Blood Pressure 126/80 Blood Pressure [Ri ght Arm] 150/89 H Blood Pressure [Ri ght Upper Arm] Pulse Oximetry 96 95 98 Oxygen Delivery Me od Room Air Hospitalist - H&P: Result Labs Labs: Short CBC 06/19/22 Range/Units 07:50 WBC 9.73 (4.50-11.00) K/uL Hgb 15.8 (13.5-17.5) gm/dL Hct 45.7 (37.0-53.0) % Plt Count 243 (140-440) K/uL [facility] 06/19/22 07:50 Sodium 136 Potassium 4.2 Chloride 85 L Carbon Dioxide 36 H BUN 14 Creatinine 0.8 Glucose 173 H Calcium 9.6 Cardiac Enzymes 06/19/22 Range/Units 08:08 Troponin I < 0.01 L (0.01-0.04) ng/mL Liver Function 06/19/22 Range/Units 07:50 Total Bilirubin 4.8 H (0.1-1.5) mg/dL AST 118 H (12-35) U/L ALT 101 H (4-50) U/L Alkaline Phosphatase 76 (40-150) U/L Albumin 5.3 H (3.3-5.0) g/dL Ordering Physician: Bebeto Canales M.D. Date of Service: 06/19/22 Procedure(s): CT abdomen pelvis w con Accession Number(s): [id number] cc: Provider,Not a Local ; Bebeto Canales M.D.~ For Patients: As a result of the Cures Act, medical imaging exams and procedure reports are released immediately into your electronic medical record. You may view this report before your referring provider. If you have questions, please contact your health care provider. INDICATION: Vomiting and abdominal pain. TECHNIQUE: CT abdomen and pelvis acquired with 74 cc Isovue 370 IV contrast. COMPARISON: 05/29/2022. FINDINGS: Lower chest: Unremarkable. Liver: Fatty infiltration. Otherwise unremarkable. Gallbladder and bile ducts: Unremarkable. No stones or inflammation. No biliary dilatation. Pancreas: Unremarkable. No mass or inflammation. Spleen: Unremarkable. Normal in size. No masses. Adrenal glands: Unremarkable. No nodules. Kidneys: Unremarkable. No suspicious masses, stones, or hydronephrosis. GI tract: Unremarkable. Normal in caliber. No sign of mass or inflammation. Normal appendix. Vasculature: Abdominal aorta is normal in caliber. Mesenteric arteries are patent. Lymph nodes: No lymphadenopathy. Peritoneum/Abdominal Wall: Unremarkable. No sign of mass or infiltration. No free air or significant free fluid. Pelvis: Unremarkable. Bones: Unremarkable for age. IMPRESSION: Unremarkable CT of the abdomen and pelvis. No findings to explain vomiting or abdomen pain. Specifically the GI tract is normal.. Please note that all CT scans at this facility use dose modulation, iterative reconstruction, and/or weight-based dosing when appropriate to reduce radiation dose to as low as reasonably achievable. Dictated by Melquiades Zambrano MD @ 06/19/2022 8:27:48 AM (Electronically Signed) 06/19/2022 10:03 a.m. EKG : Normal sinus rhythm with sinus arrhythmia. 75 beats per minute. Prolonged QT. QTC interval is 533 milliseconds. QTC was 437 milliseconds on 05/29/2022. Assessment and Plan Assessment and plan (1) Acute upper gastrointestinal bleeding: Problem comment: - differential includes gastritis, variceal bleeding, Lois Polanco tear, bleeding ulcer - not currently having emesis. Hemoglobin was unremarkable at 15.8. Check another hemoglobin this evening and 1 again in the morning. Advanced diet as tolerated. Status: Acute (2) Alcoholism: Problem comment: - Place seizure precautions and treat with phenobarbital and lorazepam per [facility] protocol. Status: Acute (3) Acute alcoholic hepatitis: Problem comment: Elevated total bilirubin. I have spoken with him about abstaining from alcohol. He and his father have already read the [facility] of [employer] Everytime. I have asked social Work to see him for substance abuse as well. Status: Acute (4) Long QT interval: Problem comment: - 06/19/22 QTC interval is 533 milliseconds. QTC was 437 milliseconds on 05/29/2022. - new from 05/2022. Monitor on telemetry. Potassium is within normal limits. Check magnesium. He is not on any medications. Status: Acute (5) Nicotine dependence: Problem comment: Start nicotine patch. Status: Acute
[2022-06-19 17:40] LABS: Magnesium* 1.5 mg/dL (1.5-2.6)
[2022-06-19 18:02] LABS: Hemoglobin* 14.1 gm/dL (13.5-17.5)
[2022-06-19] MEDS: NICOTINE 21 MG PATCH 1 PATCH TRANSDERMA (18:31)
--- NOTE | 2022-06-19 19:47 | PC.NURSE ---
shift note; pt admit to rm via wc @ 1030. pt a&o x3. vss stable. iv patent. pt ciwa 4,5. pt having u/e tremors and feeling sweaty as day has progressed. Pt denies n/v. pt states throat pain 5/10. pt tolerates full liquid diet. pt had lg green sour smelling stool. pt voided 600cc this afternoon. LS clr. tele s.tach with rare pac
[2022-06-19] MEDS: MAGNESIUM IV 2 GM/50 ML PIGGYBACK IVPB (20:49)
[2022-06-20] VITALS (8 sets, daily range): BP systolic 120–166; BP diastolic 72–92; PULSE 58–87; RESP 16–18; TEMP 36.2–36.9; O2SAT 95–98
[2022-06-20] MEDS: BENZOCAINE/MENTHOL 1 EACH LOZENGE MUCOUS MEM ×2 (06:08→23:26)
--- NOTE | 2022-06-20 06:24 | PC.NURSE ---
[id number]: Patient with no acute events overnight. Patient CIWA remains below 8 at this time. patient with no periods of vomiting or diarrhea. Patient urine remains dark. Patient continues to complain of throat pain and lozenge ordered per standard protocol. Patient remained vitally stable overnight. Patient up ad ivan. Patient showered this am. Patient remains on full liquid diet. Patient remains on tele NSR. Patient will continue to be monitored.
[2022-06-20 07:05] LABS: Hemoglobin* 14.5 gm/dL (13.5-17.5)
[2022-06-20 07:38] LABS: Chloride* 94 mmol/L (96-114)
[2022-06-20 07:39] LABS: Albumin* 4.3 g/dL (3.3-5.0); Potassium* 3.5 mmol/L (3.6-5.1); Sodium* 131 mmol/L (135-149)
[2022-06-20 07:41] LABS: Bilirubin Total* 4.7 mg/dL (0.1-1.5); Creatinine* 0.6 mg/dL (0.5-1.5); Est. Creatinine Clearance* 164.85; Estimated Glomerular Filt Rate 132 ml/min
[2022-06-20 07:42] LABS: Alanine Aminotransferase* 65 U/L (4-50); Alkaline Phosphatase* 68 U/L (40-150); Aspartate Amino Transferase* 61 U/L (12-35); Blood Urea Nitrogen* 11 mg/dL (5-24); Calcium* 8.9 mg/dL (8.4-10.6); Carbon Dioxide* 30 mmol/L (20-32); Glucose* 106 mg/dL (60-115); Total Protein* 7.2 g/dL (6.0-8.3)
[2022-06-20] MEDS: MULTIVITAMIN/MINERALS 1 TABLET 1 TAB PO (08:50)
[2022-06-20] MEDS: OMEPRAZOLE 20 MG CAPSULE DR PO (08:51)
[2022-06-20] MEDS: FOLIC ACID 1 MG TABLET PO (08:51)
[2022-06-20] MEDS: SODIUM CHLORIDE 0.9 % (FLUSH) 10 ML SYRINGE 5 ML IVF ×2 (08:52→23:26)
[2022-06-20] MEDS: POTASSIUM BICARB 25 MEQ EFFERVESCENT TAB PO (11:10)
[2022-06-20] MEDS: THIAMINE 100 MG TABLET PO (14:29)
--- NOTE | 2022-06-20 15:24 | PM.IMPN1 ---
Progress Note: A&P Assessment and plan (1) Acute upper gastrointestinal bleeding: Problem details: - differential includes gastritis, variceal bleeding, Lois Polanco tear, bleeding ulcer - not currently having emesis. Hemoglobin was unremarkable at 15.8. Hemoglobin has been stable. Vitals are stable. EGD is recommended. Probably tomorrow morning. Status: Acute (2) Alcoholism: Problem details: - Place seizure precautions and treat with phenobarbital and lorazepam per [facility] protocol. Status: Acute (3) Acute alcoholic hepatitis: Problem details: Elevated total bilirubin. I have spoken with him about abstaining from alcohol. He and his father have already read the [employer] [facility] [employer]. I have asked social Work to see him for substance abuse as well. Transaminases are better today bilirubin remains elevated. Status: Acute (4) Long QT interval: Problem details: - 06/19/22 QTC interval is 533 milliseconds. QTC was 437 milliseconds on 05/29/2022. - new from 05/2022. Monitor on telemetry. Potassium is within normal limits. Check magnesium. He is not on any medications. Status: Acute (5) Nicotine dependence: Problem details: Start nicotine patch. Status: Acute Plan Continue in-hospital today to monitor for his ability to maintain his own nutrition and hydration without vomiting. EGD tomorrow. If doing well at that point probably discharged to home for outpatient followup particular attention to abstinence from alcohol and evaluation and management of possible chronic liver disease. Time Spent With Patient Total time spent: Total time spent today is 40 minutes, 30 minutes in coordination care and discussing with patient other providers ongoing management of alcohol related liver disease, vomiting and hematemesis Subjective Date Seen: 06/20/22 Interval history: 32-year-old male admitted to the hospital for intractable vomiting, ectopic gastric pain and hematemesis in the context of ongoing alcohol abuse disorder. Patient was admitted to the hospital with intractable vomiting. Initially it started out as nonbloody but then quickly became quite bloody. He also reported that he had some black tarry stools. He does not ever recall having endoscopy to evaluate this. In his medical record there was indication that he has had previous diagnosis of Lois-Polanco tears with intractable vomiting however. Patient has ongoing alcohol of use disorder. He went through treatment in November 2021 but returned to fairly heavy drinking subsequently. He reports that it involvement in alcoholics anonymous was not helpful for him. Overnight he reports his vomiting seems to have resolved. His abdominal pain is better. Still feels irritation or burning in his esophagus and in the back of his throat. He has not had any fever. He reports not feeling shaky. He did have a feeling of sweats during the night. He has not required lorazepam under are [facility] protocol. He did receive phenobarbital yesterday with apparently good affect. Exam Narrative: Exam Narrative: He is alert, pleasant and in no distress. He gives his own history. There is no tremulousness. Respirations are clear to auscultation. Cardiovascular: S1, S2, regular rate and rhythm. Abdomen is soft without tenderness or mass. No tremor in his hands. Const: Vital Signs, click to edit/add: Vital Signs - 24 hr 06/19/22 17:32 06/19/22 18:40 06/19/22 19:00 Temperature 98.1 F 98.3 F Pulse Rate 106 H Pulse Rate [Right Radial] 92 75 Respiratory Rate 18 18 Blood Pressure [Ri ght Arm] 130/81 127/90 H Pulse Oximetry 96 [facility] 06/19/22 19:00 06/19/22 23:00 06/19/22 23:00 Temperature 98.3 F Pulse Rate 60 Pulse Rate [Right Radial] 75 Respiratory Rate 18 Blood Pressure [Ri ght Arm] 127/90 H Pulse Oximetry 95 97 [facility] 06/19/22 23:00 06/19/22 23:00 06/19/22 23:00 Temperature 98.3 F 98.3 F Pulse Rate Pulse Rate [Right Radial] 69 69 69 Respiratory Rate 18 18 18 Blood Pressure [Ri ght Arm] 121/92 H 121/92 H Pulse Oximetry 95 95 [facility] Room Air 06/20/22 03:00 06/20/22 03:00 06/20/22 07:00 Temperature 97.1 F L 97.1 F L Pulse Rate 73 Pulse Rate [Right Radial] 67 67 Respiratory Rate 18 18 Blood Pressure [Ri ght Arm] 130/90 H 130/90 H Pulse Oximetry 95 95 [facility] Room Air 06/20/22 07:00 06/20/22 07:00 06/20/22 11:00 Temperature 98.2 F 98.2 F Pulse Rate Pulse Rate [Right Radial] 73 87 Respiratory Rate 16 18 Blood Pressure [Ri ght Arm] 127/72 136/92 H Pulse Oximetry 98 98 96 Oxygen Delivery Me thod Room Air Room Air Documenting provider has reviewed patient's vital signs: yes Labs Labs: Laboratory Results - last 24 hr 06/19/22 06/19/22 06/19/22 07:50 08:50 17:56 Hgb 14.1 Sodium Potassium Chloride Carbon Dioxide BUN Creatinine Estimated Creat Clear Estimated GFR Glucose Calcium Magnesium 1.5 Total Bilirubin AST ALT Alkaline Phosphatase Total Protein Albumin Lab Acknowledgement Test Added 06/20/22 06/20/22 06:55 07:25 Hgb 14.5 Sodium 131 L Potassium 3.5 L Chloride 94 L Carbon Dioxide 30 BUN 11 Creatinine 0.6 Estimated Creat Clear 164.85 Estimated GFR 132 Glucose 106 Calcium 8.9 Magnesium 2.0 Total Bilirubin 4.7 H AST 61 H ALT 65 H Alkaline Phosphatase 68 Total Protein 7.2 Albumin 4.3 Lab Acknowledgement Test Added
[2022-06-20] MEDS: NICOTINE 21 MG PATCH 1 PATCH TRANSDERMA (18:43)
[2022-06-20 19:41] LABS: C.Difficile Negative (Negative); CDIFFEPI 027 PRESUMPTIVE NEGATIVE (Negative)
[2022-06-20] MEDS: LACTATED RINGERS 1000 ML 1,000 ML 75 ML IV (23:25)
[2022-06-20] MEDS: MAG HYDROX/ALUMINUM HYD/SIMETH 30 ML ORAL.SUSP 15 ML PO (23:26)
[2022-06-21] VITALS (8 sets, daily range): BP systolic 125–166; BP diastolic 80–99; PULSE 65–76; RESP 16–18; TEMP 36.6–36.7; O2SAT 96–98
[2022-06-21] MEDS: OMEPRAZOLE 20 MG CAPSULE DR PO (06:22)
--- NOTE | 2022-06-21 06:41 | PC.NURSE ---
[id number]: Patient with no acute events overnight. Patient CIWA remains below 1 at this time. patient with no periods of vomiting or diarrhea. Patient urine remains dark. Patient remained vitally stable overnight. Patient up ad ivan. Patient showered this am. Patient NPO at this time for possibility of EGD. time unknown. Patient remains on tele NSR.? Patient will continue to be monitored.
[2022-06-21 06:49] LABS: Basophils Absolute Auto 0.03 K/uL (0.00-0.30); Basophils Percent Auto 0.4 % (0.0-3.0); Eosinophils Absolute Auto 0.14 K/uL (0.00-0.50); Eosinophils Percent Auto 1.9 % (0.0-7.0); Hematocrit 45.5 % (37.0-53.0); Hemoglobin* 15.5 gm/dL (13.5-17.5); Immature Granulocytes Abs Auto 0.02 K/uL (0.00-0.30); Immature Granulocytes Pct Auto 0.3 %; Lymphocytes Absolute Auto 1.65 K/uL (0.90-2.90); Lymphocytes Percent Auto 22.6 % (20-44); Mean Corpuscular HGB Conc 34 gm/dL (32-36); Mean Corpuscular Hemoglobin 34 pg (26-34); Mean Corpuscular Volume 99 fL (80-100); Monocytes Percent Auto 8.2 % (0.0-11.0); Neutrophils Absolute Auto 4.87 K/uL (1.7-7.0); Neutrophils Percent Auto 66.6 % (42.0-72.0); Platelet Count* 166 K/uL (140-440); RDW Coefficient of Variation % 12.9 % (11.5-15.5); Red Blood Count 4.62 m/uL (4.30-5.90); White Blood Count* 7.31 K/uL (4.50-11.00)
[2022-06-21 07:04] LABS: Albumin* 4.4 g/dL (3.3-5.0); Chloride* 96 mmol/L (96-114); Potassium* 4.9 mmol/L (3.6-5.1); Sodium* 134 mmol/L (135-149)
[2022-06-21 07:06] LABS: Creatinine* 0.6 mg/dL (0.5-1.5); Est. Creatinine Clearance* 164.85; Estimated Glomerular Filt Rate 132 ml/min; Slide Review Reflex No
[2022-06-21 07:07] LABS: Alanine Aminotransferase* 78 U/L (4-50); Alkaline Phosphatase* 57 U/L (40-150); Aspartate Amino Transferase* 83 U/L (12-35); Blood Urea Nitrogen* 11 mg/dL (5-24); Carbon Dioxide* 32 mmol/L (20-32); Glucose* 81 mg/dL (60-115); Total Protein* 7.5 g/dL (6.0-8.3)
[2022-06-21 07:08] LABS: Calcium* 9.5 mg/dL (8.4-10.6)
[2022-06-21] MEDS: BENZOCAINE/MENTHOL 1 EACH LOZENGE MUCOUS MEM (07:54)
[2022-06-21] MEDS: SODIUM CHLORIDE 0.9 % (FLUSH) 10 ML SYRINGE 5 ML IVF (09:45)
--- NOTE | 2022-06-21 10:13 | W.ANESCHARGE ---
Anesthesia Charges Start Date/Time Anesthesia Start Date: 06/21/22 Anesthesia Start Time: 10:30 Stop Date/Time Anesthesia Stop Date: 06/21/22 Anesthesia Stop Time: 10:53
--- NOTE | 2022-06-21 10:59 | W.ANESCHARGE ---
Anesthesia Charges Start Date/Time Anesthesia Start Date: 06/21/22 Anesthesia Start Time: 10:30 Stop Date/Time Anesthesia Stop Date: 06/21/22 Anesthesia Stop Time: 10:53
[2022-06-21] MEDS: FOLIC ACID 1 MG TABLET PO (12:05)
[2022-06-21] MEDS: THIAMINE 100 MG TABLET PO (12:05)
[2022-06-21] MEDS: MULTIVITAMIN/MINERALS 1 TABLET 1 TAB PO (12:06)
--- NOTE | 2022-06-21 13:23 | PM.DS1 ---
DS: Providers Provider Date Seen: 06/21/22 Date of admission: 06/19/22 12:13 Primary care physician: Not a Local Provider Admitting Clinician: Amado Brown MD Consults: 06/19/22 12:39 Consult to Principal Associate [CONS] Routine Comment: Reason for Consult:: Discharge Planning Needs Attending Physician on discharge: Byron Brown MD Date of Discharge: 06/21/22 DS: Diagnosis Discharge Diagnosis (1) Acute upper gastrointestinal bleeding: Status: Acute Problem details: EGD today, 06/21/2022 shows esophagitis, duodenitis, 3 Lois-Polanco tears. - not currently having emesis. Hemoglobin was unremarkable at 15.8. Hemoglobin has been stable. Vitals are stable. (2) Alcoholism: Status: Acute Problem details: After receiving phenobarbital his had minimal alcohol withdrawal signs or symptoms. Patient plans outpatient alcohol treatment through [facility] (3) Acute alcoholic hepatitis: Status: Acute Problem details: Elevated total bilirubin. I have spoken with him about abstaining from alcohol. He and his father have already read the [facility] [employer]. I have asked social Work to see him for substance abuse as well. Transaminases are better today bilirubin remains elevated. Bilirubin is slowly improving (4) Long QT interval: Status: Acute Problem details: - 06/19/22 QTC interval is 533 milliseconds. QTC was 437 milliseconds on 05/29/2022. - new from 05/2022. Monitor on telemetry. Potassium is within normal limits. Check magnesium. He is not on any medications. (5) Nicotine dependence: Status: Acute Problem details: Start nicotine patch. Recommend smoking cessation DS: Summary Hospital Course Hospital Course: 32-year-old male admitted to the hospital with intractable vomiting that became grossly bloody. At the time of admission the vomiting was thought secondary to alcohol induced hepatitis. Cause of the bleeding at time of admission was uncertain. He underwent endoscopy which showed duodenitis, esophagitis and Lois-Polanco tears. Lois-Polanco tears were thought responsible for the hematemesis. During his hospital stay his vomiting and bleeding all resolved. Hemoglobin and vital signs remained stable. He is placed on a proton pump inhibitor, omeprazole. He is monitored for alcohol withdrawal. He received phenobarbital 5 mg per kg loading dose and has not had significant withdrawal problems and has not needed any further benzodiazepine or phenobarbital. Status at Discharge Functional status at discharge: independent ambulation Overall status at discharge: patient is back to baseline Time Spent with Patient Time attestation: Total time spent providing and/or coordinating discharge services: Time spent: Less than 30 minutes Exam Narrative: Exam Narrative: He is alert and appears in no distress. Independent in ADLs. Const: Vital Signs, click to edit/add: Vital Signs - 24 hr 06/20/22 15:00 06/20/22 15:00 06/20/22 15:00 Temperature 97.8 F Pulse Rate Pulse Rate [Right Radial] 72 72 Respiratory Rate 18 18 Blood Pressure Blood Pressure [Ri ght Arm] 127/89 Pulse Oximetry 96 96 Oxygen Delivery Me thod Room Air 06/20/22 19:00 06/20/22 19:00 06/20/22 19:49 Temperature 98.4 F 98.4 F Pulse Rate 58 L Pulse Rate [Right Radial] 70 70 Respiratory Rate 18 18 Blood Pressure Blood Pressure [Ri ght Arm] 120/92 H 120/92 H Pulse Oximetry 96 96 Oxygen Delivery Me thod Room Air Room Air 06/20/22 23:00 06/20/22 23:00 06/20/22 23:00 Temperature Pulse Rate 63 Pulse Rate [Right Radial] 70 Respiratory Rate 18 Blood Pressure Blood Pressure [Ri ght Arm] Pulse Oximetry 96 Oxygen Delivery Me thod 06/20/22 23:00 06/20/22 23:00 06/21/22 03:00 Temperature 98.0 F 97.9 F 97.9 F Pulse Rate Pulse Rate [Right Radial] 69 76 76 Respiratory Rate 18 18 18 Blood Pressure Blood Pressure [Ri ght Arm] 130/86 166/89 H 166/89 H Pulse Oximetry 96 96 96 Oxygen Delivery Me thod Room Air Room Air Room Air 06/21/22 03:00 06/21/22 07:00 06/21/22 07:24 Temperature 97.9 F 98.0 F Pulse Rate Pulse Rate [Right Radial] 76 70 Respiratory Rate 18 16 Blood Pressure Blood Pressure [Ri ght Arm] 166/89 H 137/93 H Pulse Oximetry 96 97 97 Oxygen Delivery Me thod Room Air Room Air 06/21/22 07:55 06/21/22 07:55 06/21/22 11:51 Temperature 98.0 F 98.0 F Pulse Rate 71 71 Pulse Rate [Right Radial] 70 Respiratory Rate 16 16 Blood Pressure 126/80 Blood Pressure [Ri ght Arm] 137/93 H Pulse Oximetry 97 Oxygen Delivery Me thod Room Air Documenting provider has reviewed patient's vital signs: yes DS: Data Data Completed and Pending Labs on day of discharge: Labs from last 24 hours 06/21/22 06/20/22 06:20 18:48 WBC 7.31 RBC 4.62 Hgb 15.5 Hct 45.5 MCV 99 MCH 34 MCHC 34 RDW Coeff of [place] 12.9 Plt Count 166 Neut % (Auto) 66.6 Lymph % (Auto) 22.6 [place] % (Auto) 8.2 Eos % (Auto) 1.9 Baso % (Auto) 0.4 Neut # (Auto) 4.87 Lymph # (Auto) 1.65 [place] # (Auto) 0.60 Eos # (Auto) 0.14 Baso # (Auto) 0.03 Sodium 134 L Potassium 4.9 Chloride 96 Carbon Dioxide 32 BUN 11 Creatinine 0.6 Estimated Creat Clear 164.85 Estimated GFR 132 Glucose 81 Calcium 9.5 Total Bilirubin 3.0 H AST 83 H ALT 78 H Alkaline Phosphatase 57 Total Protein 7.5 Albumin 4.4 Stl C. diff Tox B Gene Negative Stl C. diff [id number] PRESUMPTIVE NEGATIVE Discharge Plan Discharge Disposition: Home, Self-Care Date of Admission: 06/19/22 12:13 Attending Provider on Discharge: Amado Brown Primary Care Provider: Provider,Not a Local Condition: Improved Anticipated Discharge Date/Time: 06/21/22 14:00 Discharge Medications: New omeprazole 20 mg Capsule,Delayed Release(Dr/Ec) 20 mg PO DAILY@0700 Qty: 30 1RF multivitamin with folic acid [Thera] 400 mcg Tablet 1 tab PO DAILY Qty: 100 0RF No Action No Known Home Medications Discharge Orders: Discharge Order (Routine); Ordered 06/21/22 Ordered By: Amado Brown Patient Education: Omeprazole (By mouth), Multivitamins, Adult Formula (By mouth), Gastrointestinal Bleeding (DC), Abuse of Alcohol (DC) Additional Instructions: See your doctor next week for a follow-up appointment. The biopsies from your endoscopy should be available to review at that time. Contact [facility] to initiate treatment for your alcoholism. Activity Level: No Restrictions Follow Up Appointments: Provider,Not a Local [Primary Care Provider] - Bebeto Canales MD [Staff Physician] - 06/29/22 1:00 pm ([facility] follow with Dr. Canales.) Forms: [employer] Info Instructions
--- NOTE | 2022-06-21 14:59 | PC.NURSE ---
D/c: Pt A&O. Denies n/v, tremors, and hallucinations . Complained of throat pain, PRN medication given w/ relief. Pt NPO prior to procedure. Tolerating clear liquid. IV removed w/ tip intact. d/c instructions given verbally to pt and a written copy sent home with pt. All questions answered. d/c home with father around 1300.
== END 2022-06-21 13:08 | disposition home or self-care (01) | DRG 369 ==
LOC: ED 09:17 → MEDSURG 09:39
PROVIDERS: Admitting Provider Family Medicine; Emergency Provider Internal Medicine; Visit Provider Family Medicine
DX: K22.6 Gastro-esophageal laceration-hemorrhage syndrome (principal); F10.239 Alcohol dependence with withdrawal, unspecified; K20.90 Esophagitis, unspecified without bleeding; K29.80 Duodenitis without bleeding; K70.10 Alcoholic hepatitis without ascites; K92.0 Hematemesis; F17.210 Nicotine dependence, cigarettes, uncomplicated; I45.81 Long QT syndrome
CPT/HCPCS: 00731; 36415; 43239; 74177; 80053; 82077; 82150; 83690; 83735; 83986; 84484; 85018; 85025; 85610; 85730; 86850; 86900; 86901; 87493; 88305; 93005; 99284; 99285; A9153; A9270; C9113; J2405; J2560; J2704; J3360; J3411; J3475; J3490; J7030; J7120; Q9967; S4990